=== PATIENT | male | born 1985 | race Caucasian/White ===

== ENCOUNTER 2019-03-19 23:15 | Emergency (ER) | payer OTHER, BC ==
[2019-03-19] MEDS ORDERED: Lidocaine 1% 10 ML MDV INJECT ONE (23:32)
--- NOTE | 2019-03-19 23:33 | EDM.PDOC ---
ED HPI GENERAL MEDICAL PROBLEM - General Chief Complaint: Laceration Stated Complaint: THUMB LACERATION Time Seen by Provider: 03/19/19 23:28 - History of Present Illness INITIAL COMMENTS - FREE TEXT/NARRATIVE: 33-year-old male presents emergency room with a laceration of his left thumb. This occurred about 7:00 this evening the patient was using a box knife and he cut himself. The patient believes his last tetanus shot was before high school. Patient sustained no other injuries with this incident. The patient was busy at work he covered this up and kept on working he noticed no functional deficit with the thumb Left Finger-Thumb Pain Score (Numeric/FACES): 2 - Related Data Allergies Allergy/AdvReac Type Severity Reaction Status Date / Time No Known Allergies Allergy Verified 03/19/19 23:25 Home Meds: Home Meds . [No Known Home Meds] 03/19/19 [History] ED ROS GENERAL - Review of Systems Review Of Systems: See Below Constitutional: Reports: No Symptoms HEENT: Reports: No Symptoms Respiratory: Reports: No Symptoms Cardiovascular: Reports: No Symptoms Endocrine: Reports: No Symptoms GI/Abdominal: Reports: No Symptoms : Reports: No Symptoms Musculoskeletal: Reports: No Symptoms Skin: Reports: No Symptoms Neurological: Reports: No Symptoms Psychiatric: Reports: No Symptoms Hematologic/Lymphatic: Reports: No Symptoms ED EXAM, SKIN/RASH Exam: See Below Exam Limited By: No Limitations General Appearance: Alert, No Apparent Distress Respiratory/Chest: No Respiratory Distress, Lungs Clear, Normal Breath Sounds Cardiovascular: Regular Rate, Rhythm, No Edema, No Murmur Extremities: Other (Examination of his left thumb shows a 2 cm laceration that involves the nail plate this is very clean cut it is in the distal third of the distal phalanx 2 or 3 mm of nail involvement with good approximation 2 cm skin laceration wrapping around towards the palmar aspect.) ED SKIN PROCEDURES - Laceration/Wound Repair Left Digit - 1st (Thumb) Appearance: Subcutaneous, Clean Anesthetic Type: Digital Local Anesthesia - Lidocaine (Xylocaine): 1% Plain Local Anesthetic Volume: 3cc Skin Prep: Chlorhexidine (Hibiciens), Saline Exploration/Debridement/Repair: Wound Explored, In a Bloodless Field, Explored to Base Lac/Wound length In cm: 5 (Only skin sutures applied the nail plate did not need to be addressed) Suture Size: 4-0 Suture Type: Nylon Course - Vital Signs Last Recorded V/S: Last Vital Signs Temp 35.7 C 03/19/19 23:23 Pulse 106 H 03/19/19 23:23 Resp 18 03/19/19 23:23 BP 137/98 H 03/19/19 23:23 Pulse Ox 100 03/19/19 23:23 - Orders/Labs/Meds Orders: Active Orders 24 hr Category Date Time Status Influenza Vaccine Charge [RC] .DISCHARGE Care 03/19/19 23:31 Active Vaccines to be Administered [RC] PER UNIT ROUTINE Care 03/20/19 00:04 Active Meds: Medications Discontinued Medications Generic Name Dose Route Start Last Admin Trade Name Freq PRN Reason Stop Dose Admin Diphtheria/Tetanus/Acell Pertussis 0.5 ml 03/20/19 00:03 03/20/19 00:16 Adacel IM 03/20/19 00:04 0.5 ml .ONCE ONE Administration Influenza Virus Vaccine 1 each 03/19/19 23:30 Pharmacy To Dose - Influenza Vaccine IM 03/19/19 23:31 ONETIME ONE Influenza Virus Vaccine 60 mcg 03/20/19 00:00 03/20/19 00:15 Fluzone Quad [id number] Syringe IM 03/20/19 00:01 60 mcg .ONCE ONE Administration Lidocaine HCl 10 ml 03/19/19 23:32 03/19/19 23:46 Xylocaine 1% INJECT 03/19/19 23:33 10 ml ONETIME ONE Administration Departure - Departure Time of Disposition: 00:29 Disposition: Home, Self-Care 01 Clinical Impression: Laceration of thumb - Discharge Information Instructions: Laceration Care, Adult, [id number] Referrals: PCP,None [Primary Care Provider] - Forms: ED Department Discharge, ED Return to Work/School Form Additional Instructions: Return to the emergency room with any questions problems worsening symptoms Keep wound absolutely clean and dry for the next 48 hours. After 48 hours she can let water gently run over the area for up to 15 seconds then gently dab dry no scrubbing. Suture removal in 11 or 12 days. - My Orders Last 24 Hours: My Active Orders 03/19/19 23:31 Influenza Vaccine Charge [RC] .DISCHARGE 03/20/19 00:04 Vaccines to be Administered [RC] PER UNIT ROUTINE - Assessment/Plan Last 24 Hours: My Active Orders 03/19/19 23:31 Influenza Vaccine Charge [RC] .DISCHARGE 03/20/19 00:04 Vaccines to be Administered [RC] PER UNIT ROUTINE
[2019-03-20] MEDS ORDERED: FLU Vacc QS2019-20(6MOS+)/PF 60 MCG/0.5 ML SYRINGE IM ONE
[2019-03-20] MEDS ORDERED: Diphtheria,Pertussis(Acell),Tetanus Vaccine 0.5 ML Syringe IM ONE (00:03)
== END 2019-03-20 00:37 | disposition home or self-care (01) ==
LOC: JD.ED 23:15
DX: S61.012A Laceration without foreign body of left thumb without damage to nail, initial encounter (principal); Z23 Encounter for immunization; W26.0XXA Contact with knife, initial encounter
CPT/HCPCS: 12001; 90471; 90686; 90700; 99282; J2001; 12002; G0008